=== PATIENT | male | born 1975 | race Two or more races ===

== ENCOUNTER 2019-07-09 19:34 | Emergency (ER) | payer OTHER ==
[~2019-07-09] VITALS: Ht 160 cm; Wt 82.6 kg
[2019-07-09] MEDS ORDERED: INSU100V36 SQ (19:54)
[2019-07-09] MEDS ORDERED: INSU100I26 SQ (19:54)
[2019-07-09] MEDS ORDERED: ROSU10TA29 PO (19:54)
[2019-07-09] MEDS ORDERED: OMEG-72 PO (19:54)
[2019-07-09] MEDS ORDERED: RISP1TAB27 PO (19:54)
[2019-07-09] MEDS ORDERED: CYAN10009 PO (19:54)
[2019-07-09] MEDS ORDERED: FENO145T21 PO (19:54)
[2019-07-09] MEDS ORDERED: MEMA5TAB42 PO (19:54)
[2019-07-09] MEDS ORDERED: TRAZ-182 PO (19:54)
[2019-07-09] MEDS ORDERED: ESCI10TA55 PO (19:54)
[2019-07-09] MEDS ORDERED: CEFTRIAXONE 1 G in IV DEXTROSE 5% 50 ML IV ONE (20:00)
[2019-07-09] MEDS ORDERED: ACETAMINOPHEN ES 500 MG TABLET PO ONE (20:00)
[2019-07-09] MEDS ORDERED: CEFTRIAXONE /D5W 50ML IVPB **ER PYXIS IV ONE (20:32)
[2019-07-09] MEDS ORDERED: ACETAMINOPHEN ES 500 MG TABLET ONE (20:32)
[2019-07-09 21:21] LABS: BASOPHILS % (AUTO) 0.4 % (0.0-2.0); EOSINOPHILS % (AUTO) 0.2 % (0.0-7.0); HEMATOCRIT 38.6 % (36.7-47.1); HEMOGLOBIN 13.5 g/dL (12.5-16.3); LYMPHOCYTES # (AUTO) 1.2 K/uL (20.0-40.0); LYMPHOCYTES % (AUTO) 21.3 % (20.5-51.5); MEAN CORPUSCULAR HEMOGLOBIN 32.2 uug (23.8-33.4); MEAN CORPUSCULAR HGB CONC 35 g/dL (32.5-36.3); MEAN CORPUSCULAR VOLUME 92.1 fL (73.0-96.2); MONOCYTES # (AUTO) 0.5 K/uL (2.0-10.0); MONOCYTES % (AUTO) 9.1 % (0.0-11.0); NEUTROPHILS # (AUTO) 3.8 K/uL (1.8-8.9); PLATELET COUNT (AUTO) 209 K/uL (152-348); WHITE BLOOD COUNT (AUTO) 5.5 K/uL (3.6-10.2)
[2019-07-09 21:42] LABS: BILIRUBIN,TOTAL 0.2 mg/dL (0.2-1.0); CREATININE 0.9 mg/dL (0.6-1.3); TOTAL PROTEIN, SERUM 7.2 g/dL (6.4-8.2)
[2019-07-09] MEDS ORDERED: IV NORMAL SALINE 1000 ML BAG IV ONE (22:15)
--- NOTE | 2019-07-09 22:33 | NUR ---
[facility] Nephrology contacted for panel call. Dr. Murdock is oncall, awaiting call back.
--- NOTE | 2019-07-09 22:39 | NUR ---
Dr. Zavaleta on panel call with Dr. Murdock
[2019-07-10 01:03] LABS: *BILIRUBIN,URIN NEGATIVE (NEGATIVE); *BLOOD, URINE NEGATIVE (NEGATIVE); *CLARITY,URINE CLEAR (CLEAR); *COLOR,URINE YELLOW (YELLOW); *KETONES,URINE NEGATIVE (NEGATIVE); *UROBILINOGEN,URINE 0.2 E.U./dl (NORMAL); LEUKOCYTE ESTERASE ,URINE NEGATIVE (NEGATIVE); NITRITE, URINE NEGATIVE (NEGATIVE); PH,URINE 5.5 (5.0-8.0)
[2019-07-10 01:07] LABS: UGLUCOSE 3+ (NEGATIVE)
[2019-07-10 01:13] LABS: BACTERIA,URINE NONE SEEN /HPF (NONE SEEN); MUCUS,URINE FEW /LPF (0-FEW); RBC,URINE 0-3 /HPF (0-3); SQUAMOUS EPITHELIAL CELL,UR FEW /HPF (NONE SEEN); WBC,URINE 0-3 /HPF (0-3)
--- NOTE | 2019-07-10 01:50 | NUR ---
[facility] contacted ( ). S/W Jules. Pt will be picked up within 35 minutes. Primary nurse notified.
--- NOTE | 2019-07-10 02:01 | NUR ---
Called [facility]. spoke with Vanessa
--- NOTE | 2019-07-10 02:20 | NUR ---
Patient discharged to home in stable condition. Written and verbal after care instructions given. Patient verbalizes understanding of instructions. Stressed follow up or return to ER for worsening s/s. pt picked up by [facility], assisted by 2 membership counselor no s/s of distress. respiration even and unlabored all belongings with pt Afibrile Addendum: 07/10/19 at 0339 by AYLIN Patient cleared for discharge to [facility]. Pt picked [facility] by [facility], assisted by 2 membership counselor . Written and verbal after care instructions given to EMT who verbalizes understanding of instructions. Also informed them that Vanessa TODD was given report of patients course in ER. Stressed follow up or return to ER for worsening s/s. Emphasized importance of continued Covid 19 isolation, still r/o at this time. Pt left via gurney, afebrile with no s/s of distress. Respiration even and unlabored. All belongings with pt. Left in stable condition.
[2019-07-10 03:13] VITALS: BP 118/72
== END 2019-07-10 02:20 ==
LOC: ER 19:41
DX: U07.1 COVID-19 (principal); R50.9 Fever, unspecified; G30.9 Alzheimer's disease, unspecified; F02.80 Dementia in other diseases classified elsewhere, unspecified severity, without behavioral disturbance, psychotic disturbance, mood disturbance, and anxiety; E11.9 Type 2 diabetes mellitus without complications; Z79.4 Long term (current) use of insulin
CPT/HCPCS: 36415; 71045; 80053; 81000; 81001; 83605; 83880; 84145; 84484; 85025; 85379; 85730; 87040 ×2; 87086; 93005; 96365; 99285; J0696; U0003; 70030-TC; A4663; A9150; C1758; J7030